=== PATIENT | male | born 1980 | race African-American/Black ===

== ENCOUNTER 2022-06-24 23:10 | Emergency (ER) | payer OTHER ==
[~2022-06-24] VITALS: Ht 177.8 cm; Wt 111.0 kg
[2022-06-24] MEDS ORDERED: AMOX/K CLAV875 M1 PO ×2 (23:27→23:37)
[2022-06-24 23:31] VITALS: BP 167/114
[2022-06-24 23:40] VITALS: BP 167/114
== END 2022-06-25 00:06 | disposition home or self-care (01) | DRG 153 ==
LOC: ED 23:10
DX: H66.91 Otitis media, unspecified, right ear (principal); H60.91 Unspecified otitis externa, right ear

== ENCOUNTER 2022-06-28 07:47 | Emergency (ER) | payer OTHER ==
[~2022-06-28] VITALS: Ht 177.8 cm; Wt 109.0 kg
[~2022-06-28 07:47] MED LIST: AMOX/K CLAV875 M1 PO
[2022-06-28] MEDS ORDERED: MECLIZINE25 M1 PO (09:59)
[2022-06-28 17:12] VITALS: BP 100/67
== END 2022-06-28 11:07 | disposition home or self-care (01) | DRG 153 ==
LOC: ED 07:47
DX: H66.91 Otitis media, unspecified, right ear (principal); I10 Essential (primary) hypertension